=== PATIENT | male | born 1960 | race African-American/Black ===

== ENCOUNTER 2020-01-24 15:39 | Emergency (ER) | payer OTHER, SELFPAY ==
[2020-01-24] VITALS (7 sets, daily range): BP systolic 112–128; BP diastolic 41–73; PULSE 86–101; RESP 16–20; TEMP 36.9; O2SAT 91–100; BMI 21.3
[2020-01-24] MEDS: LORazepam 2 MG/ML VIAL IVPUSH (16:00)
--- NOTE | 2020-01-24 16:04 | CT_ITS ---
EXAMINATION: CT HEAD WITHOUT CONTRAST CLINICAL INFORMATION: Seizures. COMPARISON: None TECHNIQUE: Contiguous axial imaging was performed from the skull base to vertex without intravenous administration of contrast. This CT examination was performed using dose optimization techniques as appropriate, variously including the following: *Automated exposure control *Adjustment of mA and/or kV according to patient size (this includes techniques or standardized protocols for targeted exams where dose is matched to indication/reason for exam; i.e. extremities or head) *Use of iterative reconstruction technique DLP: 917 mGy-cm FINDINGS: A hypoattenuating expansile lesion is seen centered within the right parietal lobe and appears to extend to the right aspect of the corpus callosum. There is mineralization/hyperdensity within the lesion and mass effect on the posterior aspect of the right lateral ventricle. Confluent hypoattenuation is seen within the parietal lobe parenchyma extending to the vertex. No significant midline shift is seen. There is no evidence of hydrocephalus. No infarction or lobar hemorrhage is seen. There is mild paranasal sinus mucosal thickening. The mastoids are clear. The calvarium is intact. 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 Further evaluation with brain tumor protocol MRI including with whole brain FIESTA sequence is recommended.
--- NOTE | 2020-01-24 16:13 | ECG_ITS ---
Test Reason : SEIZURE Blood Pressure : / mmHG Vent. Rate : 093 BPM Atrial Rate : 093 BPM P-R Int : 164 ms QRS Dur : 098 ms QT Int : 390 ms P-R-T Axes : 057 040 039 degrees QTc Int : 484 ms Normal sinus rhythm Normal ECG No previous ECGs available Referred By: Paula Zuñiga Electronically Signed By:KATHIE FIGUEROA MD
--- NOTE | 2020-01-24 16:15 | ED.SEIZURE ---
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 Upon EMS arrival, they witnessed 1-1/2 minute tonic-clonic seizure with tongue biting, patient was postictal and brought to [facility]. Upon arrival here, the patient had a no other tonic clonic seizure and was given 2 mg of Ativan. Will order labs and head CT and neuro consult. Nursing spoke with patient's spouse, confirmed he has no past medical history, does not take any medications but has been complaining of a headache for the last few days, no trauma that she is aware of and he has no allergies. She only noted his blood pressure has been in the 140s lately and they were supposed to have a doctor's appointment tomorrow to follow-up about it. Related Data Allergies Allergy/AdvReac Type Severity Reaction Status Date / Time No Known Allergies Allergy Verified 01/24/20 16:04 Review of Systems Review of Systems: Yes Unobtainable due to mental status [facility] Past Medical History [facility] Narrative: unknown to all Source: unable to obtain Social History Social History Alcohol intake: current Alcohol intake frequency: 3 or more drinks per day Alcohol type: beer Smoking Status: Unknown if ever smoked Use of substances other than those prescribed or required for medical reasons: No Advance Directives: No Advance Directives Information Provided: No Physical Exam Vital Signs: Vital Signs: Vital Signs Temp Pulse Resp BP Pulse Ox 01/24/20 19:44 86 19 112/61 97 01/24/20 19:09 98.5 F 89 16 128/73 97 01/24/20 17:29 89 18 116/63 96 01/24/20 16:46 93 20 122/67 100 01/24/20 16:20 101 H 18 122/67 98 01/24/20 16:10 90 18 123/57 L 100 10/28/20 16:04 98.4 F 90 19 123/41 L 91 L Body Mass Index 21.3 Const: General: No alert or awake Nutritional Appearance: average body habitus and well nourished Limitations: altered mental status HENMT: Head: Yes normal to inspection, Yes No palpable skull fracture present, Yes normocephalic, Yes atraumatic, No Guzman's sign and No raccoon eyes Ears: external ears normal General nose exam: Normal external nose present Face and sinus: Yes normal facial exam Mouth: Normal oral and palatal mucosa present Eyes: General: appearance normal, both eyes and all related structures Pupils: Equal, round and reactive pupils present Neck: Neck: Yes normal visual inspection Chest: Chest palpation & inspection: normal inspection of the chest Resp: Effort & Inspection: normal respiratory effort Auscultation: clear to auscultation bilaterally, no crackles, no rales, no rhonchi and no wheezes Cardio: Rate: regular rate Rhythm: regular rhythm Heart sounds: S1 normal heart sound present and S2 normal heart sound present GI: Inspection: Yes normal to inspection Palpation (GI): Soft to palpation Auscultation: normal bowel sounds Skin: General skin exam: no rashes or lesions noted Neuro: Cranial nerves: Yes Equal, round and reactive pupils present Extrem: General: Yes normal to inspection and Yes no pedal edema Course Course Course Narrative: 59-year-old male with no significant past medical history presents via EMS with 3 tonic-clonic seizures, all witnessed, first-time seizures today. His states he has had headaches for the past few days leading up to today and slightly elevated blood pressures but no other complaints. All labs WNL sans bicarb of 9 and glucose of 240, Head CT shows Expansile lesion centered within the right parietal lobe extending to the corpus callosum and resulting in mass effect on the posterior aspect of the right lateral ventricle. Further evaluation with brain tumor protocol MRI including with whole brain FIESTA sequence is recommended. Gave 2mg ativan upon arrival then once CT resulted, gave 1mg Keppra, 4mg decadron (then another 6mg shortly after). Spoke with [facility] neuro surgery Dr. Jw Lagos, he will consult pt with accepting doctor of hospitalist Dr Janie Herrera. Will get rapid COVID-19 as pt needs documentation showing is negative before they will accept. Pt COVID-19 negative, will transfer pt to [facility] via ambulance. Family informed of situation, Wendy and her father in the pt's room, we discussed what the CT showed and need for transfer, she agreed. Gave instructions on how to reach/see pt at [facility]. Answered all of her questions. MDM - Seizure Lab Data Result diagrams: 01/24/20 16:21 01/24/20 16:21 Labs: Lab Results 01/24/20 01/24/20 01/24/20 Range/Units 15:58 16:21 16:21 WBC 9.4 (4.8-10.8) X10*3/uL RBC 4.36 L (4.60-5.80) X10*6/uL Hgb 13.2 L (14.0-18.0) g/dl Hct 42.1 (42-52) % MCV 96.6 (80-98) fL MCH 30.3 (27.0-33.0) pg MCHC 31.4 (31.0-36.0) g/dl RDW 12.4 (11.0-16.0) % Plt Count 206 (160-400) X10*3/uL MPV 11.2 (9.4-12.4) fL Immature Gran % (Auto) 0.6 H (0.0-0.4) % Neut % (Auto) 54.0 (45-73) % Lymph % (Auto) 36.3 (20-40) % [place] % (Auto) 6.7 (2-11) % Eos % (Auto) 2.2 (0-4) % Baso % (Auto) 0.2 (0-2) % Lymph # (Auto) 3.4 (1.2-4.9) X10*3/uL [place] # (Auto) 0.6 (0.1-1.2) X10*3/uL Eos # (Auto) 0.2 (0.0-0.4) X10*3/uL Baso # (Auto) 0.0 (0.0-0.2) X10*3/uL Abs Immat Gran (auto) 0.06 H (0.00-0.03) X10*3/uL Absolute Neuts (auto) 5.1 (2.0-8.3) X10*3/uL Absolute Nucleated RBC 0.000 (0.0-0.012) X10*3/uL Nucleated RBC % (auto) 0.0 (0.0-0.2) /100WBC PT 11.5 (10.8-13.0) SEC INR 1.0 (0.9-1.1) APTT 30.6 (24.1-38.0) SEC Sodium (135-145) mmol/L Potassium (3.3-5.1) mmol/l Chloride (96-108) mmol/L Carbon Dioxide (22-29) mmol/L Anion Gap (12-20) BUN (9-16) mg/dL Creatinine (0.5-1.4) mg/dL Estim Creat Clear Calc Estimated GFR POC Glucose 233 H (60-115) mg/dL Random Glucose (60-115) mg/dL Calcium (8.4-10.2) mg/dL Magnesium (1.6-2.6) mg/dL Total Bilirubin (0.0-1.0) mg/dL Direct Bilirubin (0.0-0.5) mg/dL AST (5-37) U/L ALT (0-40) U/L Alkaline Phosphatase (39-117) U/L Total Protein (6.5-8.0) g/dL Albumin (3.5-5.0) g/dL Urine Color Urine Appearance Urine pH (5.0-8.0) Ur Specific [place] (1.005-1.025) Urine Protein (NEG-TRACE) MG/DL Urine Glucose (UA) (NEG) MG/DL Urine Ketones (NEG) MG/DL Urine Blood (NEG) Urine Nitrite (NEG) Ur Leukocyte Esterase (NEG) Urine RBC (0) /HPF Urine WBC (0-4) /HPF Ur Squamous Epith Cells /LPF Amorphous Sediment /LPF Urine Bacteria /LPF Urine Sperm Urine Opiates Screen (Not Detect) Ur Barbiturates Screen (Not Detect) Ur Phencyclidine Scrn (Not Detect) Ur Amphetamines Screen (Not Detect) U Benzodiazepines Scrn (Not Detect) Urine Cocaine Screen (Not Detect) U Marijuana (THC) Screen (Not Detect) Coronavirus (PCR) (Negative) 01/24/20 01/24/20 01/24/20 Range/Units 16:21 17:08 17:08 WBC (4.8-10.8) X10*3/uL RBC (4.60-5.80) X10*6/uL Hgb (14.0-18.0) g/dl Hct (42-52) % MCV (80-98) fL MCH (27.0-33.0) pg MCHC (31.0-36.0) g/dl RDW (11.0-16.0) % Plt Count (160-400) X10*3/uL MPV (9.4-12.4) fL Immature Gran % (Auto) (0.0-0.4) % Neut % (Auto) (45-73) % Lymph % (Auto) (20-40) % [place] % (Auto) (2-11) % Eos % (Auto) (0-4) % Baso % (Auto) (0-2) % Lymph # (Auto) (1.2-4.9) X10*3/uL [place] # (Auto) (0.1-1.2) X10*3/uL Eos # (Auto) (0.0-0.4) X10*3/uL Baso # (Auto) (0.0-0.2) X10*3/uL Abs Immat Gran (auto) (0.00-0.03) X10*3/uL Absolute Neuts (auto) (2.0-8.3) X10*3/uL Absolute Nucleated RBC (0.0-0.012) X10*3/uL Nucleated RBC % (auto) (0.0-0.2) /100WBC PT (10.8-13.0) SEC INR (0.9-1.1) APTT (24.1-38.0) SEC Sodium 138 (135-145) mmol/L Potassium 4.0 (3.3-5.1) mmol/l Chloride 102 (96-108) mmol/L Carbon Dioxide 9 L* (22-29) mmol/L Anion Gap 31 H (12-20) BUN 25 H (9-16) mg/dL Creatinine 1.23 (0.5-1.4) mg/dL Estim Creat Clear Calc 63.3 Estimated GFR > 60 POC Glucose (60-115) mg/dL Random Glucose 240 H (60-115) mg/dL Calcium 8.2 L (8.4-10.2) mg/dL Magnesium 2.5 (1.6-2.6) mg/dL Total Bilirubin 0.3 (0.0-1.0) mg/dL Direct Bilirubin < 0.2 (0.0-0.5) mg/dL AST 32 (5-37) U/L ALT 44 H (0-40) U/L Alkaline Phosphatase 58 (39-117) U/L Total Protein 7.2 (6.5-8.0) g/dL Albumin 4.5 (3.5-5.0) g/dL Urine Color YELLOW Urine Appearance CLEAR Urine pH 5.0 (5.0-8.0) Ur Specific [place] >= 1.030 H (1.005-1.025) Urine Protein 1+ H (NEG-TRACE) MG/DL Urine Glucose (UA) 250 H (NEG) MG/DL Urine Ketones NEG (NEG) MG/DL Urine Blood TRACE (NEG) Urine Nitrite NEG (NEG) Ur Leukocyte Esterase NEG (NEG) Urine RBC 1-4 (0) /HPF Urine WBC 0-2 (0-4) /HPF Ur Squamous Epith Cells 1+ /LPF Amorphous Sediment 1+ /LPF Urine Bacteria NONE /LPF Urine Sperm NOTED Urine Opiates Screen Not Detected (Not Detect) Ur Barbiturates Screen Not Detected (Not Detect) Ur Phencyclidine Scrn Not Detected (Not Detect) Ur Amphetamines Screen Not Detected (Not Detect) U Benzodiazepines Scrn Not Detected (Not Detect) Urine Cocaine Screen Not Detected (Not Detect) U Marijuana (THC) Screen Not Detected (Not Detect) Coronavirus (PCR) (Negative) 01/24/20 Range/Units 18:26 WBC (4.8-10.8) X10*3/uL RBC (4.60-5.80) X10*6/uL Hgb (14.0-18.0) g/dl Hct (42-52) % MCV (80-98) fL MCH (27.0-33.0) pg MCHC (31.0-36.0) g/dl RDW (11.0-16.0) % Plt Count (160-400) X10*3/uL MPV (9.4-12.4) fL Immature Gran % (Auto) (0.0-0.4) % Neut % (Auto) (45-73) % Lymph % (Auto) (20-40) % [place] % (Auto) (2-11) % Eos % (Auto) (0-4) % Baso % (Auto) (0-2) % Lymph # (Auto) (1.2-4.9) X10*3/uL [place] # (Auto) (0.1-1.2) X10*3/uL Eos # (Auto) (0.0-0.4) X10*3/uL Baso # (Auto) (0.0-0.2) X10*3/uL Abs Immat Gran (auto) (0.00-0.03) X10*3/uL Absolute Neuts (auto) (2.0-8.3) X10*3/uL Absolute Nucleated RBC (0.0-0.012) X10*3/uL Nucleated RBC % (auto) (0.0-0.2) /100WBC PT (10.8-13.0) SEC INR (0.9-1.1) APTT (24.1-38.0) SEC Sodium (135-145) mmol/L Potassium (3.3-5.1) mmol/l Chloride (96-108) mmol/L Carbon Dioxide (22-29) mmol/L Anion Gap (12-20) BUN (9-16) mg/dL Creatinine (0.5-1.4) mg/dL Estim Creat Clear Calc Estimated GFR POC Glucose (60-115) mg/dL Random Glucose (60-115) mg/dL Calcium (8.4-10.2) mg/dL Magnesium (1.6-2.6) mg/dL Total Bilirubin (0.0-1.0) mg/dL Direct Bilirubin (0.0-0.5) mg/dL AST (5-37) U/L ALT (0-40) U/L Alkaline Phosphatase (39-117) U/L Total Protein (6.5-8.0) g/dL Albumin (3.5-5.0) g/dL Urine Color Urine Appearance Urine pH (5.0-8.0) Ur Specific [place] (1.005-1.025) Urine Protein (NEG-TRACE) MG/DL Urine Glucose (UA) (NEG) MG/DL Urine Ketones (NEG) MG/DL Urine Blood (NEG) Urine Nitrite (NEG) Ur Leukocyte Esterase (NEG) Urine RBC (0) /HPF Urine WBC (0-4) /HPF Ur Squamous Epith Cells /LPF Amorphous Sediment /LPF Urine Bacteria /LPF Urine Sperm Urine Opiates Screen (Not Detect) Ur Barbiturates Screen (Not Detect) Ur Phencyclidine Scrn (Not Detect) Ur Amphetamines Screen (Not Detect) U Benzodiazepines Scrn (Not Detect) Urine Cocaine Screen (Not Detect) U Marijuana (THC) Screen (Not Detect) Coronavirus (PCR) NEGATIVE (Negative) Imaging Data CT scan - head: Attestation: I personally reviewed and interpreted this imaging study as follows: My impression: brain lesion with mass effect Radiologist's impression: [address] [address] [address] Scan Report Signed Patient: Nabil Schmitz [facility]#: [id number] : 1Acct:[id number] Age/Sex: 59 / MADM Date: 01/24/20 Loc: HO.ED Attending Dr: Ordering Physician: EYAL COLÓN Date of Service: 01/24/20 Procedure(s): CT head/brain wo con Accession Number(s): [id number] cc: EYAL COLÓN~ EXAMINATION: CT HEAD WITHOUT CONTRAST CLINICAL INFORMATION: Seizures. COMPARISON: None TECHNIQUE: Contiguous axial imaging was performed from the skull base to vertex without intravenous administration of contrast. This CT examination was performed using dose optimization techniques as appropriate, variously including the following: *Automated exposure control *Adjustment of mA and/or kV according to patient size (this includes techniques or standardized protocols for targeted exams where dose is matched to indication/reason for exam; i.e. extremities or head) *Use of iterative reconstruction technique DLP: 917 mGy-cm FINDINGS: A hypoattenuating expansile lesion is seen centered within the right parietal lobe and appears to extend to the right aspect of the corpus callosum. There is mineralization/hyperdensity within the lesion and mass effect on the posterior aspect of the right lateral ventricle. Confluent hypoattenuation is seen within the parietal lobe parenchyma extending to the vertex. No significant midline shift is seen. There is no evidence of hydrocephalus. No infarction or lobar hemorrhage is seen. There is mild paranasal sinus mucosal thickening. The mastoids are clear. The calvarium is intact. 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 Further evaluation with brain tumor protocol MRI including with whole brain FIESTA sequence is recommended. Dictated By:MONIKA MORENO MD Signed By:<Electronically signed by MONIKA MORENO MD in OV>01/24/20 1703 DD/ 1604 TD/TT: Supervisor Frame Sample And Pattern: LES Discharge Plan Discharge Clinical Impression: Brain mass Patient Disposition: [facility]
[2020-01-24 16:27] LABS: MANUAL DIFF FLAG NO
[2020-01-24 16:31] LABS: Basophils Percent Auto 0.2 % (0-2); Eosinophils Absolute Auto 0.2 X10*3/uL (0.0-0.4); Eosinophils Percent Auto 2.2 % (0-4); Hematocrit 42.1 % (42-52); Hemoglobin 13.2 g/dl (14.0-18.0); Imm Gran Abs Auto 0.06 X10*3/uL (0.00-0.03); Imm Gran Pct Auto 0.6 % (0.0-0.4); Lymphocytes Absolute Auto 3.4 X10*3/uL (1.2-4.9); Lymphocytes Percent Auto 36.3 % (20-40); Mean Corpuscular HGB Conc 31.4 g/dl (31.0-36.0); Mean Corpuscular Hemoglobin 30.3 pg (27.0-33.0); Mean Corpuscular Volume 96.6 fL (80-98); Mean Platelet Volume 11.2 fL (9.4-12.4); Monocytes Absolute Auto 0.6 X10*3/uL (0.1-1.2); Monocytes Percent Auto 6.7 % (2-11); Neutrophils Absolute Auto 5.1 X10*3/uL (2.0-8.3); Platelet Count 206 X10*3/uL (160-400); Red Blood Count 4.36 X10*6/uL (4.60-5.80); Red Cell Distribution Width 12.4 % (11.0-16.0); White Blood Count 9.4 X10*3/uL (4.8-10.8)
[2020-01-24 16:35] LABS: Prothrombin Time 11.5 SEC (10.8-13.0)
[2020-01-24 16:37] LABS: Glucose, Whole Blood 233 mg/dL (60-115)
[2020-01-24 16:38] LABS: Partial Thromboplastin Time 30.6 SEC (24.1-38.0)
--- NOTE | 2020-01-24 16:42 | PC.NURSE ---
At 1555 patient was witnessed to have a seizure by this RN and 2nd RN, Dr awan to beside and ordered 2mg ativan IV.
--- NOTE | 2020-01-24 16:43 | PC.NURSE ---
[address] monitored by this RN. pt remains postictal. NSR via tele.
--- NOTE | 2020-01-24 16:44 | PC.NURSE ---
2nd iv 18g to right forearm.
[2020-01-24 17:19] LABS: Alanine Aminotransferase 44 U/L (0-40); Albumin Level 4.5 g/dL (3.5-5.0); Alkaline Phosphatase 58 U/L (39-117); Anion Gap 31 (12-20); Aspartate Amino Transferase 32 U/L (5-37); Bilirubin Direct < 0.2 mg/dL (0.0-0.5); Bilirubin Total 0.3 mg/dL (0.0-1.0); Blood Urea Nitrogen 25 mg/dL (9-16); Calcium 8.2 mg/dL (8.4-10.2); Carbon Dioxide 9 mmol/L (22-29); Chloride 102 mmol/L (96-108); Creatinine Clr Calc Pharmacy 63.3; Estimated Glomerular Filt Rate > 60; Glucose Random 240 mg/dL (60-115); Magnesium 2.5 mg/dL (1.6-2.6); Sodium 138 mmol/L (135-145); Total Protein 7.2 g/dL (6.5-8.0)
[2020-01-24 17:22] LABS: Glucose Urine UA 250 MG/DL (NEG); Leukocyte Esterase Urine NEG (NEG); Nitrite Urine NEG (NEG); Specific Gravity - Urine >= 1.030 (1.005-1.025); Urine Blood TRACE (NEG); Urine Ketones NEG (NEG); Urine Protein 1+ MG/DL (NEG-TRACE)
[2020-01-24] MEDS: levETIRAcetam in NaCl (iso-os) 1,000 MG/100 ML PIGGYBACK 400 MG IV (17:27)
[2020-01-24 17:29] LABS: Appearance Urine CLEAR; Color Urine YELLOW
[2020-01-24 17:35] LABS: Amorphous Sediment Urine 1+ /LPF; Sperm Urine NOTED; Squamous Epithelial Cell Urine 1+ /LPF; WBC Urine 0-2 /HPF (0-4)
[2020-01-24] MEDS: dexAMETHasone sod phosphate 4 MG/ML VIAL IVPUSH (18:07)
[2020-01-24] MEDS: Sodium Bicarbonate 8.4% 50 MEQ/50 ML VIAL IVPUSH (18:07)
--- NOTE | 2020-01-24 18:08 | PC.NURSE ---
Patient woke up, able to state that he is in [place] but unaware of current situation. Patient made aware he had 2 seizures today and he stated I dont have that. Patient now sleeping again
[2020-01-24 18:13] LABS: Amphetamine Screen Urine Not Detected (Not Detect); Barbiturates, Urine Not Detected (Not Detect); Benzodiazepines Screen Urine Not Detected (Not Detect); Cannabinoid Screen Urine Not Detected (Not Detect); Cocaine Screen Urine Not Detected (Not Detect); Opiate Screen Urine Not Detected (Not Detect); Phencyclidine Screen Urine Not Detected (Not Detect)
[2020-01-24] MEDS: dexAMETHasone sod phosphate 4 MG/ML VIAL 6 MG IVPUSH (18:28)
[2020-01-24 19:34] LABS: SARS COV2 PCR INHOUSE NEGATIVE (Negative)
--- NOTE | 2020-01-24 19:44 | PC.NURSE ---
pt sleeping, skin appropriate for race, warm, dry. resp even and non labored. nsr via tele. awaiting ambulance for transfer to [facility]
--- NOTE | 2020-01-24 19:53 | PC.NURSE ---
[facility] TRANSFER LINE CALLED TO BE INFORMED OF PATIENT'S NEGATIVE COVID RESULT. GIVEN BED ASSIGNMENT [facility] WITH NUMBER FOR REPORT [phone]. S AMBULANCE TRANSPORT BOOKED AT THIS TIME PER PROVIDER INSTRUCTION.
== END 2020-01-24 20:35 | disposition short-term general hospital (02) ==
PROVIDERS: Physician Assistant; Emergency Provider Emergency Medicine; PCP Internal Medicine
DX: R56.9 Unspecified convulsions (principal); R22.0 Localized swelling, mass and lump, head; Z20.828 Contact with and (suspected) exposure to other viral communicable diseases
CPT/HCPCS: 36415; 70450; 80048; 80076; 80307; 81001; 82947; 83735; 85025; 85610; 85730; 87635; 93005; 96374; 99285; J1100; J1953; J2060